=== PATIENT | male | born 1965 | race Caucasian/White ===

== ENCOUNTER → 2018-08-04 08:17 | Outpatient (CLI) | payer OTHER, SELFPAY ==
--- NOTE | 2018-08-04 | DI.MRI.S_ITS ---
PROCEDURE: MR KNEE LT WO CON INDICATIONS: KNEE DERANGEMENT TECHNIQUE: Noncontrast sagittal PD fast spin echo and T2 fast spin echo with fat saturation, sagittal 3-D FLASH with fat saturation; coronal T1 spin echo and PD fast spin echo with fat saturation, and axial PD fast spin echo with fat saturation through the knee. COMPARISON: None. FINDINGS: Image quality: Diagnostic Bones and joint: There is no acute fracture or dislocation. No suspicious osseous lesions are evident. There is a small knee joint effusion without significant fluid extending into a Ochoa's cyst. Mild irregularity of the hyaline articular cartilage within the medial and patellofemoral compartments is present with small to moderate size full thickness cartilaginous defects evident. Degenerative/reactive marrow changes along the central aspect of the medial femoral condyle and at the medial patellar facet is present. No full-thickness defects are evident involving lateral compartment hyaline articular cartilage. Cruciate ligaments: The anterior and posterior cruciate ligaments are intact. Menisci: Degenerative signal within the medial meniscus is identified. There is low-grade partial-thickness tearing involving the posterior root of the medial meniscus. The lateral meniscus is intact and otherwise unremarkable. Medial structures: The medial collateral ligament is intact. The semimembranosus tendon insertion is intact. The imaged portions of the pes anserinus tendons are unremarkable. No significant fluid is contained within the pes anserinus bursa. Lateral structures: The popliteal tendon is intact. The lateral collateral ligament proper (fibular collateral ligament) and the proximal tibiofibular ligaments are intact. The distal aspect of the biceps femoris tendon and the iliotibial band are intact. Anterior structures: The quadriceps and patellar tendons are intact. There is no significant edema in the infrapatellar fat pad. IMPRESSION: 1. Early patellofemoral and medial compartment chondromalacia. 2. Degenerative signal of the medial meniscus with a low-grade partial-thickness tearing of the posterior meniscal root. 3. Small knee joint effusion. Dictated by: Tyree Dawkins M.D. on 08/04/2018 at 9:50 Approved by: Tyree Dawkins M.D. on 08/04/2018 at 9:53
== END ==
PROVIDERS: Visit Provider Orthopaedic Surgery
DX: S83.242A Other tear of medial meniscus, current injury, left knee, initial encounter (principal); M22.42 Chondromalacia patellae, left knee; M25.462 Effusion, left knee
CPT/HCPCS: 73721